=== PATIENT | female | born 1995 | race Caucasian/White ===

== ENCOUNTER → 2020-02-14 | Outpatient (CLI) | payer OTHER ==
--- NOTE | 2020-02-14 11:37 | US ---
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 GLAND SIZE: Right Lobe: 3.6 X 1.4 X 1.0 cm Overall Parenchyma: homogenous Left Lobe: 4.6 x 1.1 x 1.5 cm Overall Parenchyma: homogeneous Isthmus Thickness: 0.3 cm NODULES RIGHT: # of nodules measured on right: 0 LEFT: # of nodules measured on left: 1 1. 0.4 X 0.3 x 0.2 cm hypoechoic cystic nodule at the lower pole with well-defined margins; . This nodule is wider than tall and shows no intranodular vascularity. ISTHMUS: # of nodules measured in the isthmus: 0 Bilateral neck scanned, no evidence of lymphadenopathy. IMPRESSION: Nonspecific subcentimeter nodule left thyroid lobe.
== END | disposition home or self-care (01) ==
LOC: RADUSWWP 11:01
PROVIDERS: ATTEND Family Medicine
DX: E04.1 Nontoxic single thyroid nodule (principal)
CPT/HCPCS: 76536

== ENCOUNTER → 2020-04-25 | Outpatient (CLI) | payer MEDICARE, OTHER | END | disposition home or self-care (01) | LOC: LABWHC1 13:43 | PROVIDERS: ATTEND Pediatrics Pediatric Infectious Diseases | DX: Z11.59 Encounter for screening for other viral diseases (principal) | CPT/HCPCS: U0003; C9803 ==

== ENCOUNTER → 2020-04-28 | Outpatient (CLI) | payer OTHER | END | disposition home or self-care (01) | LOC: LABWHC1 15:24 | PROVIDERS: ATTEND Pediatrics Pediatric Infectious Diseases | DX: Z11.59 Encounter for screening for other viral diseases (principal) | CPT/HCPCS: U0003; C9803 ==

== ENCOUNTER 2020-05-06 09:18 | Outpatient (CLI) | payer OTHER ==
[2020-05-06 10:09] VITALS: BP 128/65; PULSE 77; RESP 15; TEMP 97.6
--- NOTE | 2020-05-07 08:03 | P.MSEPDOC ---
Presenting Problems - Arrival Data Date of Arrival on Unit: 05/06/20 Time of Arrival on Unit: 09:18 Mode of Transport: Ambulatory - Complaint OB-Reason for Admission/Chief Complaint: Pain Comment: Pt complains of left sided abdominal pain that she rates 6/10. States it is a constant aching/sharp pain. Medical History - Information : 2 Para: 1 Term: 1 : 0 Abortions: Spontaneous or Elective: 0 Number of Living Children: 1 - Gestational Age Gestational Age by MANGO (wks/days): 25 Weeks and 0 Days Review of Systems - Review of Systems Constitutional: No problems Breast: No problems ENT: No problems Cardiovascular: No problems Respiratory: No problems Gastrointestinal: No problems Genitourinary: No problems Musculoskeletal: No problems Neurological: No problems Skin: No problems Vital Signs - Temperature Temperature: 97.6 F Temperature Source: Temporal Artery Scan - Pulse Pulse Oximetery Pulse Rate: 77 Pulse Assessment Method: Pulse Oximetry - Respirations Respiratory Rate: 15 Oxygen Delivery Method: Room Air O2 Sat by Pulse Oximetry: 98 - Blood Pressure Right Arm Blood Pressure: 128/65 Blood Pressure Mean: 86 Blood Pressure Source: Automatic Cuff Medical Screen Scoring (Pre) - Cervical Exam Dilation: Exam Deferred Effacement: Exam Deferred Membranes: Intact - Uterine Contractions Frequency: N/A Duration: N/A Intensity: N/A - Maternal Vital Signs Maternal Temperature: N/A Maternal Blood Pressure: N/A Signs of Preeclampsia: N/A Maternal Respirations: N/A - Maternal Trauma Maternal Trauma: N/A - Assessment - Baby A Baseline FHR: 130 Heart Rate - NICHD Category: Category I (Normal) = 0 Position: N/A Station: N/A - Total Score - Baby A Total Score - Baby A: 0 - Total Score - Baby B Total Score - Baby B: 0 - Total Score - Baby C Total Score - Baby C: 0 - Level of Risk - Baby A Level of Risk - Baby A: Low (0-5) - Level of Risk - Baby B Level of Risk - Baby B: Low (0-5) - Level of Risk - Baby C Level of Risk - Baby C: Low (0-5) Physician Notification (Pre) - Physician Notified Physician Notified Date: 05/06/20 Physician Notified Time: 09:48 New Order Received: Yes Disposition - Disposition OB Disposition: Physician follow up in office, Discharge to home Discharge Date: 05/06/20 Discharge Time: 09:55 I agree with the RN Medical Screening Exam: Yes Risk & Benefit of care provided described in d/c instruction: Yes Diagnosis: FALSE LABOR BEFORE 37 COMPLETED WEEKS OF GEST, SECOND TRI
== END 2020-05-06 09:55 | disposition home or self-care (01) ==
LOC: FBPOP 09:18
PROVIDERS: ATTEND Obstetrics & Gynecology
DX: O47.02 False labor before 37 completed weeks of gestation, second trimester (principal); Z3A.25 25 weeks gestation of pregnancy
CPT/HCPCS: 99213

== ENCOUNTER 2020-05-09 05:39 | Outpatient (CLI) | payer MEDICARE, OTHER ==
[2020-05-09 06:19] LABS: Appearance,Urine Clear (Clear); Bacteria,Urine Rare /hpf; Bilirubin,Urine Negative (Negative); Blood,Urine Negative (Negative); Color,Urine Light Yellow; Glucose,Urine (UA) Negative (Negative); Ketones,Urine Negative (Negative); Leukocyte Esterase,Urine Moderate (Negative); Nitrite,Urine Negative (Negative); Protein,Urine Negative (Negative); RBC,Urine 1 /hpf (0-5); Specific Gravity,Urine 1.002 (1.001-1.035); Squamous Epithelial Cell,Urine 1 /hpf (0-4); Urobilinogen,Urine <2.0 mg/dL (<2.0); WBC,Urine 6 /hpf (0-5)
[2020-05-09] MEDS ORDERED: LACTATED RINGERS 1,000 ML IV SCH ×2 (06:30)
[2020-05-09] MEDS ORDERED: ACETAMINOPHEN IV (For NPO) 1,000 MG in EMPTY BAG 1 BAG IVPB STA (06:35)
[2020-05-09 07:44] LABS: Basophils % (A) 0 %; Eosinophils % (A) 0 %; HGB 10.7 gm/dL (11.4-16.0); Lymphocytes # (A) 0.7 k/uL (1.0-4.8); Lymphocytes % (A) 6 %; MCH 29.5 pg (25.0-35.0); MCHC 32.5 g/dL (31.0-37.0); MCV 90.7 fL (80.0-100.0); Mean Platelet Volume 8.9; Monocytes # (A) 0.9 k/uL (0-1.0); Monocytes % (A) 7 %; Neutrophils # (A) 10.6 k/uL (1.3-7.7); Neutrophils % (A) 86 %; Platelet Count 182 k/uL (150-450); RBC 3.64 m/uL (3.80-5.40); RDW 12.9 % (11.5-15.5); WBC 12.3 k/uL (3.8-10.6)
[2020-05-09 07:55] LABS: ALT 13 U/L (4-34); AST 22 U/L (14-36); African American GFR (CKD) >90 (>60 ml/min/1.73 sqM); Alkaline Phosphatase 114 U/L (38-126); Anion Gap 6 mmol/L; Blood Urea Nitrogen 3 mg/dL (7-17); Calcium 8.7 mg/dL (8.4-10.2); Carbon Dioxide 22 mmol/L (22-30); Chloride 102 mmol/L (98-107); Glucose 104 mg/dL (74-99); Non-African American GFR(CKD) >90 (>60 ml/min/1.73 sqM); Potassium 3.5 mmol/L (3.5-5.1); Sodium 130 mmol/L (137-145); Total Bilirubin 0.6 mg/dL (0.2-1.3); Total Protein 5.7 g/dL (6.3-8.2)
--- NOTE | 2020-05-09 09:51 | US ---
EXAMINATION TYPE: US OB >= 14 wk fetus DATE OF EXAM: 05/09/2020 COMPARISON: None CLINICAL HISTORY: abd pain, fever TECHNIQUE: Transabdominal (TA) GESTATIONAL AGE / DATING Physician Established: (25 weeks/3 days) EDC: 08/19/2020 Dates by Current Scan: (25 weeks/1 days) EDC: 08/21/2020 Beta HCG (if available): Not available at this time SURVEY IUP: Single PLACENTA: Posterior PREVIA: No Previa GARRET: 14.6 cm Normal CERVICAL LENGTH (transabdominal: norm > 3.0cm): 2.9 cm BIOMETRY PRESENTATION: Breech BPD: 6.0 cm 24 weeks / 4 days HC: 22.7 cm 24 weeks / 5 days AC: 21.0 cm 25 weeks / 4 days FL: 4.6 cm 25 weeks / 3 days ESTIMATED WEIGHT IN GRAMS: 794 grams ESTIMATED WEIGHT IN LBS/OZ: 1 lbs. 12 oz. WEIGHT PERCENTAGE BASED ON ESTABLISHED DATES: 34% HC/AC: 1.1 Normal FL/AC: 22 Normal HEART RATE: 153 bpm RHYTHM: Normal IMPRESSION: 1. Single live intrauterine , with ultrasound gestational age of 25 weeks 1 day. 2. Cervical length 2.9 cm.
[2020-05-09 14:44] VITALS: BP 111/58; PULSE 120; RESP 18
[2020-05-09 14:49] VITALS: TEMP 97.3
--- NOTE | 2020-06-06 09:14 | P.MSEPDOC ---
Presenting Problems - Arrival Data Date of Arrival on Unit: 05/09/20 Time of Arrival on Unit: 05:39 Mode of Transport: Wheelchair - Complaint OB-Reason for Admission/Chief Complaint: Other Comment: pt presented with recurrent fevers that has been about 103-104 degrees, Medical History - Information : 2 Para: 1 Term: 1 : 0 Abortions: Spontaneous or Elective: 0 Number of Living Children: 1 - Gestational Age Gestational Age by MANGO (wks/days): 25 Weeks and 3 Days Review of Systems - Review of Systems Constitutional: No problems Breast: No problems ENT: No problems Cardiovascular: No problems Respiratory: No problems Gastrointestinal: No problems Genitourinary: No problems Musculoskeletal: No problems Neurological: No problems Skin: No problems Vital Signs - Temperature Temperature: 97.3 F Temperature Source: Oral - Pulse Right Brachial Pulse Rate: 120 Pulse Assessment Method: Automatic Cuff - Respirations Respiratory Rate: 18 Oxygen Delivery Method: Room Air - Blood Pressure Right Arm Blood Pressure: 111/58 Blood Pressure Mean: 75 Blood Pressure Source: Automatic Cuff Medical Screen Scoring (Pre) - Cervical Exam Dilation: Exam Deferred Effacement: Exam Deferred Membranes: Intact - Uterine Contractions Frequency: N/A Duration: N/A Intensity: N/A - Maternal Vital Signs Maternal Temperature: N/A, > 100.4 F = 4 Maternal Blood Pressure: N/A Signs of Preeclampsia: N/A Maternal Respirations: N/A - Maternal Trauma Maternal Trauma: N/A - Assessment - Baby A Baseline FHR: 165 Heart Rate - NICHD Category: Category I (Normal) = 0 NST: Reactive Position: N/A Station: N/A - Total Score - Baby A Total Score - Baby A: 4 - Total Score - Baby B Total Score - Baby B: 4 - Total Score - Baby C Total Score - Baby C: 4 - Level of Risk - Baby A Level of Risk - Baby A: Low (0-5) - Level of Risk - Baby B Level of Risk - Baby B: Low (0-5) - Level of Risk - Baby C Level of Risk - Baby C: Low (0-5) Physician Notification (Pre) - Physician Notified Physician Notified Date: 05/09/20 Physician Notified Time: 06:28 New Order Received: Yes - Notification Comment Comment: labs and covid test ordered, ivf, and offirmiv ordered Medical Screen Scoring (Post) - Cervical Exam Dilation: Exam Deferred Effacement: Exam Deferred Membranes: Intact - Uterine Contractions Frequency: N/A Duration: N/A Intensity: N/A - Maternal Vital Signs Maternal Temperature: N/A Maternal Blood Pressure: N/A Signs of Preeclampsia: N/A Maternal Respirations: N/A - Pain Assessment Pain Scale Used: Numeric (1 - 10) Pain Intensity: 0 - Maternal Trauma Maternal Trauma: N/A - Assessment - Baby A Heart Rate: 120 Heart Rate - NICHD Category: Category I (Normal) = 0 NST: Reactive Position: N/A Station: N/A - Total Score Total Score - Baby A: 0 Total Score - Baby B: 0 Total Score - Baby C: 0 - Post Treatment Level of Risk Post Treatment Level of Risk - Baby A: Low (0-5) Post Treatment Level of Risk - Baby B: Low (0-5) Post Treatment Level of Risk - Baby C: Low (0-5) Physician Notification (Post) - Physician Notified Physician Notified Date: 05/09/20 Physician Notified Time: 10:20 Physician/Practitioner Notified:: Nazanin Spoke With: milady New Order Received: Yes - Notification Comment Comment: discharge pt home, follow up with Dr. Ch beginning of the week, no work tonight or over the weekend, take tylenol as needed Disposition - Disposition OB Disposition: Discharge to home, Written follow up instructions reviewed Discharge Date: 05/09/20 Discharge Time: 11:00 I agree with the RN Medical Screening Exam: Yes Risk & Benefit of care provided described in d/c instruction: Yes Diagnosis: FEVER, UNSPECIFIED
== END 2020-05-09 11:00 | disposition home or self-care (01) ==
LOC: FBPOP 05:39
PROVIDERS: ATTEND Obstetrics & Gynecology Obstetrics
DX: O99.89 Other specified diseases and conditions complicating pregnancy, childbirth and the puerperium (principal); R50.9 Fever, unspecified; Z3A.25 25 weeks gestation of pregnancy
CPT/HCPCS: 96361; 96365; 80053; 85025; 81001; 87635; 76805; G0463; J0131; 99214

== ENCOUNTER 2020-05-10 13:37 | Emergency (ER) | payer OTHER ==
[2020-05-10] MEDS ORDERED: ACETAMINOPHEN TAB 500 MG TAB PO STA (14:23)
[2020-05-10] MEDS ORDERED: SODIUM CHLORIDE 0.9% 1,000 ML IV STA (14:23)
[2020-05-10] MEDS ORDERED: SODIUM CHLORIDE 0.9% 500 ML 500 ML IV STA (14:23)
[2020-05-10 15:13] LABS: Basophils % (A) 0 %; Eosinophils % (A) 0 %; HCT 35.3 % (34.0-46.0); Lymphocytes # (A) 0.6 k/uL (1.0-4.8); Lymphocytes % (A) 5 %; MCH 30.6 pg (25.0-35.0); MCHC 34.2 g/dL (31.0-37.0); MCV 89.5 fL (80.0-100.0); Mean Platelet Volume 8.9; Monocytes # (A) 0.5 k/uL (0-1.0); Monocytes % (A) 4 %; Neutrophils # (A) 10.8 k/uL (1.3-7.7); Neutrophils % (A) 89 %; Platelet Count 207 k/uL (150-450); RBC 3.94 m/uL (3.80-5.40); RDW 12.8 % (11.5-15.5); WBC 12.1 k/uL (3.8-10.6)
[2020-05-10 15:18] LABS: Appearance,Urine Clear (Clear); Bacteria,Urine Occasional /hpf; Bilirubin,Urine Negative (Negative); Blood,Urine Negative (Negative); Color,Urine Yellow; Glucose,Urine (UA) Negative (Negative); Ketones,Urine 1+ (Negative); Leukocyte Esterase,Urine Moderate (Negative); Mucus,Urine Rare /hpf; Nitrite,Urine Negative (Negative); Protein,Urine Trace (Negative); RBC,Urine <1 /hpf (0-5); Specific Gravity,Urine 1.008 (1.001-1.035); Squamous Epithelial Cell,Urine 1 /hpf (0-4); WBC,Urine 5 /hpf (0-5)
[2020-05-10 15:23] LABS: ALT 14 U/L (4-34); AST 23 U/L (14-36); African American GFR (CKD) >90 (>60 ml/min/1.73 sqM); Albumin 3.5 g/dL (3.5-5.0); Alkaline Phosphatase 152 U/L (38-126); Anion Gap 9 mmol/L; Blood Urea Nitrogen 3 mg/dL (7-17); Calcium 9.2 mg/dL (8.4-10.2); Carbon Dioxide 21 mmol/L (22-30); Chloride 99 mmol/L (98-107); Glucose 99 mg/dL (74-99); Non-African American GFR(CKD) >90 (>60 ml/min/1.73 sqM); Potassium 3.4 mmol/L (3.5-5.1); Sodium 129 mmol/L (137-145); Total Bilirubin 0.6 mg/dL (0.2-1.3); Total Protein 6.4 g/dL (6.3-8.2)
--- NOTE | 2020-05-10 15:24 | ED ---
Fever HPI - General Chief Complaint: Fever Stated Complaint: fever Time Seen by Provider: 05/10/20 14:08 Source: patient Mode of arrival: wheelchair Limitations: no limitations - History of Present Illness Initial Comments: 24-year-old female patient presents to the emergency department today for evaluation of fever for the last 4 days. Patient states her fever has been as high as 104F. Patient states she is having some mild abdominal discomfort with this. She is currently 26 weeks , her WIND FARM DESIGNER believe this is round ligament pain. Patient states that she was ill with upper respiratory infection the week prior to developing the fevers. States most of her symptoms resolved. States she does still have a cough. Denies any sputum production. States she is having some mild pain to the left lateral chest. Denies any shortness of breath, rash, nausea, vomiting, or diarrhea. Denies any hematuria, dysuria, urinary frequency, urinary urgency. She did have evaluation and family birthplace a couple of days ago. She had labs and urine test performed which showed no evidence for infection. Patient states she has been taking Tylenol to control her fever but it isn't completely effective. She denies any abnormal vaginal bleeding or discharge. Patient denies any recent rash, back pain, numbness, tingling, dizziness, weakness, headache, visual changes, or any other complaints. - Related Data Home Medications Medication Instructions Recorded Confirmed Pnv,Calcium 72/Iron/Folic Acid 1 tab PO DAILY 10/04/15 05/09/20 [ Plus Tablet] Acetaminophen Tab [Tylenol] 650 mg PO Q6H 05/09/20 05/09/20 Allergies Allergy/AdvReac Type Severity Reaction Status Date / Time No Known Allergies Allergy Verified 05/10/20 13:55 Review of Systems ROS Statement: Those systems with pertinent positive or pertinent negative responses have been documented in the HPI. ROS Other: All systems not noted in ROS Statement are negative. Past Medical History Past Medical History: No Reported History Additional Past Medical History / Comment(s): Patient reports that she had one seizure as a infant, none since. Patient states that she had mono at 14 years old. History of Any Multi-Drug Resistant Organisms: None Reported Past Surgical History: No Surgical Hx Reported Additional Past Surgical History / Comment(s): [place] teeth at 17 years old. Past Anesthesia/Blood Transfusion Reactions: No Reported Reaction Past Psychological History: Anxiety Smoking Status: Never smoker Past Alcohol Use History: None Reported Past Drug Use History: None Reported - Past Family History Mother Family Medical History: Musculoskeletal Disorder Additional Family Medical History / Comment(s): Cololitis, abdominal hernia, brittle bone disease, ulcers per patient. Father Family Medical History: Myocardial Infarction ([place]) Additional Family Medical History / Comment(s): [place] times two. General Exam Limitations: no limitations General appearance: alert, in no apparent distress, other (This is a well developed, well nourished adult female patient in no acute distress. Vital signs upon presentation are temperature 103.2F, pulse 137, respirations 18, blood pressure 105/64, pulse ox 99% on room air.) Eye exam: Present: normal appearance, PERRL, EOMI. Absent: scleral icterus, conjunctival injection, periorbital swelling ENT exam: Present: normal exam, normal oropharynx, mucous membranes moist Respiratory exam: Present: normal lung sounds bilaterally. Absent: respiratory distress, wheezes, rales, rhonchi, stridor Cardiovascular Exam: Present: normal rhythm, tachycardia, normal heart sounds. Absent: systolic murmur, diastolic murmur, rubs, gallop, clicks GI/Abdominal exam: Present: soft, normal bowel sounds. Absent: distended, tenderness, guarding, rebound, rigid Back exam: Present: normal inspection. Absent: CVA tenderness (R), CVA tenderness (L) Neurological exam: Present: alert, oriented X3, CN II-XII intact Psychiatric exam: Present: normal affect, normal mood Skin exam: Present: warm, dry, intact, normal color. Absent: rash Course Vital Signs 05/10/20 05/10/20 05/10/20 13:55 14:05 15:05 Temperature 103.2 F H Pulse Rate 137 H Respiratory 18 20 20 Rate Blood Pressure 105/64 O2 Sat by Pulse 99 Oximetry 05/10/20 05/10/20 16:00 17:27 Temperature 98.8 F 97.9 F Pulse Rate 100 87 Respiratory 20 20 Rate Blood Pressure 102/59 111/58 O2 Sat by Pulse 97 99 Oximetry Medical Decision Making - Medical Decision Making 24-year-old female patient presented to the emergency department today for evaluation of fever x4 days. Physical examination is unremarkable. Patient reports being tested for COVID-19 three times and being negative. She is 26 wee ks . She is feeling movement. Reports some lower abdominal discomfort especially on the left, her OBGYN told her it was round ligament pain. Labs show mildly elevated white blood cell count. negative lactic acid. Urinalysis is normal. Recent urine culture showed normal vaginal palmira. Chest xray showed no acute abormalities. We did discuss another respiratory virus as the cause of her symptoms. She will be discharged home with instructions to take tylenol for fever control. Increase fluids. Follow up with her PCP and OBGYN for recheck as soon as possible. She is instructed to return for any new, worsening, or concerning symptoms. - Lab Data Result diagrams: 05/10/20 14:41 05/10/20 14:41 Lab Results 05/10/20 05/10/20 05/10/20 Range/Units 14:41 14:41 14:41 WBC 12.1 H (3.8-10.6) k/uL RBC 3.94 (3.80-5.40) m/uL Hgb 12.0 (11.4-16.0) gm/dL Hct 35.3 (34.0-46.0) % MCV 89.5 (80.0-100.0) fL MCH 30.6 (25.0-35.0) pg MCHC 34.2 (31.0-37.0) g/dL RDW 12.8 (11.5-15.5) % Plt Count 207 (150-450) k/uL Neutrophils % 89 % Lymphocytes % 5 % Monocytes % 4 % Eosinophils % 0 % Basophils % 0 % Neutrophils # 10.8 H (1.3-7.7) k/uL Lymphocytes # 0.6 L (1.0-4.8) k/uL Monocytes # 0.5 (0-1.0) k/uL Eosinophils # 0.0 (0-0.7) k/uL Basophils # 0.0 (0-0.2) k/uL Sodium 129 L (137-145) mmol/L Potassium 3.4 L (3.5-5.1) mmol/L Chloride 99 (98-107) mmol/L Carbon Dioxide 21 L (22-30) mmol/L Anion Gap 9 mmol/L BUN 3 L (7-17) mg/dL Creatinine 0.41 L (0.52-1.04) mg/dL Est GFR (CKD-EPI)AfAm >90 (>60 ml/min/1.73 sqM) Est GFR (CKD-EPI)NonAf >90 (>60 ml/min/1.73 sqM) Glucose 99 (74-99) mg/dL Plasma Lactic Acid Matthias (0.7-2.0) mmol/L Calcium 9.2 (8.4-10.2) mg/dL Total Bilirubin 0.6 (0.2-1.3) mg/dL AST 23 (14-36) U/L ALT 14 (4-34) U/L Alkaline Phosphatase 152 H (38-126) U/L Total Protein 6.4 (6.3-8.2) g/dL Albumin 3.5 (3.5-5.0) g/dL Urine Color Yellow Urine Appearance Clear (Clear) Urine pH 7.0 (5.0-8.0) Ur Specific [place] 1.008 (1.001-1.035) Urine Protein Trace H (Negative) Urine Glucose (UA) Negative (Negative) Urine Ketones 1+ H (Negative) Urine Blood Negative (Negative) Urine Nitrite Negative (Negative) Urine Bilirubin Negative (Negative) Urine Urobilinogen 2.0 (<2.0) mg/dL Ur Leukocyte Esterase Moderate H (Negative) Urine RBC <1 (0-5) /hpf Urine WBC 5 (0-5) /hpf Ur Squamous Epith Cells 1 (0-4) /hpf Urine Bacteria Occasional H (None) /hpf Urine Mucus Rare H (None) /hpf 05/10/20 Range/Units 14:41 WBC (3.8-10.6) k/uL RBC (3.80-5.40) m/uL Hgb (11.4-16.0) gm/dL Hct (34.0-46.0) % MCV (80.0-100.0) fL MCH (25.0-35.0) pg MCHC (31.0-37.0) g/dL RDW (11.5-15.5) % Plt Count (150-450) k/uL Neutrophils % % Lymphocytes % % Monocytes % % Eosinophils % % Basophils % % Neutrophils # (1.3-7.7) k/uL Lymphocytes # (1.0-4.8) k/uL Monocytes # (0-1.0) k/uL Eosinophils # (0-0.7) k/uL Basophils # (0-0.2) k/uL Sodium (137-145) mmol/L Potassium (3.5-5.1) mmol/L Chloride (98-107) mmol/L Carbon Dioxide (22-30) mmol/L Anion Gap mmol/L BUN (7-17) mg/dL Creatinine (0.52-1.04) mg/dL Est GFR (CKD-EPI)AfAm (>60 ml/min/1.73 sqM) Est GFR (CKD-EPI)NonAf (>60 ml/min/1.73 sqM) Glucose (74-99) mg/dL Plasma Lactic Acid Matthias 1.1 (0.7-2.0) mmol/L Calcium (8.4-10.2) mg/dL Total Bilirubin (0.2-1.3) mg/dL AST (14-36) U/L ALT (4-34) U/L Alkaline Phosphatase (38-126) U/L Total Protein (6.3-8.2) g/dL Albumin (3.5-5.0) g/dL Urine Color Urine Appearance (Clear) Urine pH (5.0-8.0) Ur Specific [place] (1.001-1.035) Urine Protein (Negative) Urine Glucose (UA) (Negative) Urine Ketones (Negative) Urine Blood (Negative) Urine Nitrite (Negative) Urine Bilirubin (Negative) Urine Urobilinogen (<2.0) mg/dL Ur Leukocyte Esterase (Negative) Urine RBC (0-5) /hpf Urine WBC (0-5) /hpf Ur Squamous Epith Cells (0-4) /hpf Urine Bacteria (None) /hpf Urine Mucus (None) /hpf - Radiology Data Radiology results: report reviewed, image reviewed 2 views show normal chest. Impression is by Ostermann. Disposition Clinical Impression: Viral syndrome, Fever, Acute stress reaction Disposition: HOME SELF-CARE Condition: Good Instructions (If sedation given, give patient instructions): Fever in Adults (ED), Viral Syndrome (ED) Additional Instructions: Take 1000mg of Tylenol every 6 hours. Increase fluids. Rest. Follow-up with your primary care physician your [employer]ARM DESIGNER for recheck as soon as possible. Return to the emergency department immediately for any new, worsening, or concerning symptoms. Is patient prescribed a controlled substance at d/c from ED?: No Referrals: Kaylee Whitten III, MD [Primary Care Provider] - 1-2 days Time of Disposition: 16:59
[2020-05-10 15:37] VITALS: RESP 20
--- NOTE | 2020-05-10 15:59 | XR ---
EXAMINATION TYPE: XR chest 2V DATE OF EXAM: 05/10/2020 COMPARISON: NONE HISTORY: Fever and cough TECHNIQUE: 2 views FINDINGS: Heart and mediastinum are normal. Lungs are clear. Diaphragm is normal. Bony thorax appears intact. There is slight thoracic dextroscoliosis. IMPRESSION: Normal chest.
[2020-05-10 17:28] VITALS: BP 111/58; PULSE 87; TEMP 97.9
== END 2020-05-10 17:35 | disposition home or self-care (01) ==
LOC: EC 13:37
DX: O98.512 Other viral diseases complicating pregnancy, second trimester (principal); B34.9 Viral infection, unspecified; O99.342 Other mental disorders complicating pregnancy, second trimester; F43.0 Acute stress reaction; O99.89 Other specified diseases and conditions complicating pregnancy, childbirth and the puerperium; D72.829 Elevated white blood cell count, unspecified; R10.32 Left lower quadrant pain; Z3A.36 36 weeks gestation of pregnancy
CPT/HCPCS: 36415; 71046; 80053; 81001; 83605; 85025; 87040; 96360; 99284

== ENCOUNTER 2020-08-18 17:10 | Inpatient (IN) | payer MEDICAID, OTHER ==
[2020-08-18 17:49] LABS: Appearance,Urine Clear (Clear); Bilirubin,Urine Negative (Negative); Blood,Urine Negative (Negative); Color,Urine Colorless; Glucose,Urine (UA) Negative (Negative); Ketones,Urine Negative (Negative); Leukocyte Esterase,Urine Negative (Negative); Nitrite,Urine Negative (Negative); PH, Urine 6.5 (5.0-8.0); Protein,Urine Negative (Negative); Specific Gravity,Urine 1.003 (1.001-1.035); Urobilinogen,Urine <2.0 mg/dL (<2.0)
[2020-08-18 17:58] LABS: Creatinine,Urine Random 19.4 mg/dL; Protein/Creatinine Ratio,Urine 1.134
[2020-08-18 18:24] LABS: Basophils # (A) 0.1 k/uL (0-0.2); Basophils % (A) 1 %; Eosinophils # (A) 0.1 k/uL (0-0.7); Eosinophils % (A) 1 %; HCT 34.3 % (34.0-46.0); HGB 11.1 gm/dL (11.4-16.0); Lymphocytes # (A) 1.7 k/uL (1.0-4.8); Lymphocytes % (A) 24 %; MCH 27.6 pg (25.0-35.0); MCHC 32.2 g/dL (31.0-37.0); MCV 85.6 fL (80.0-100.0); Mean Platelet Volume 10.2; Monocytes # (A) 0.4 k/uL (0-1.0); Monocytes % (A) 5 %; Neutrophils % (A) 68 %; Platelet Count 224 k/uL (150-450); RBC 4.01 m/uL (3.80-5.40); RDW 14.6 % (11.5-15.5); WBC 7.3 k/uL (3.8-10.6)
[2020-08-18 18:31] LABS: ALT 15 U/L (4-34); AST 25 U/L (14-36); African American GFR (CKD) >90 (>60 ml/min/1.73 sqM); Albumin 3.2 g/dL (3.5-5.0); Alkaline Phosphatase 291 U/L (38-126); Anion Gap 5 mmol/L; Blood Urea Nitrogen 15 mg/dL (7-17); Calcium 9.4 mg/dL (8.4-10.2); Carbon Dioxide 22 mmol/L (22-30); Chloride 107 mmol/L (98-107); Glucose 92 mg/dL (74-99); LDH 474 U/L (313-618); Non-African American GFR(CKD) >90 (>60 ml/min/1.73 sqM); Potassium 4.2 mmol/L (3.5-5.1); Sodium 134 mmol/L (137-145); Total Bilirubin 0.2 mg/dL (0.2-1.3); Total Protein 6.1 g/dL (6.3-8.2); Uric Acid 5.9 mg/dL (3.7-7.4)
[2020-08-18] MEDS ORDERED: CARBOPROST TROMETHAMINE 250 MCG/ML 1 ML AMP IM PRN (19:35)
[2020-08-18] MEDS ORDERED: TERBUTALINE 1 MG/ML VIAL SQ PRN (19:35)
[2020-08-18] MEDS ORDERED: LIDOCAINE 0.5% (PF) 5 MG/ML (50 ML SDV) SQ PRN (19:35)
[2020-08-18] MEDS ORDERED: METHYLERGONOVINE 0.2 MG/ML 1 ML AMP IM PRN (19:35)
[2020-08-18] MEDS ORDERED: OXYTOCIN 10 UNIT/ML 1 ML VIAL IM PRN (19:35)
[2020-08-18] MEDS ORDERED: BUTORPHANOL 1 MG/ML 1 ML VIAL IV PRN (19:39)
--- NOTE | 2020-08-18 19:49 | P.HPOB ---
History of Present Illness H&P Date: 08/18/20 Chief Complaint: 39-6/7 weeks, preeclampsia The patient is a 24-year-old 2 para 1001 admitted at 39-6/7 weeks as established by an 11 week ultrasound. She is admitted after having been seen in the office today where she had a moderately elevated blood pressures with a complaint of scotomata yesterday and trace to 1+ edema in the bilateral lower extremities. Urine dip was negative for protein. She was brought to labor and delivery where she had laboratory studies done for preeclampsia. She was found to have moderately labile blood pressures with a mildly elevated uric acid and LDH as well as an elevated protein to creatinine ratio. The remainder of the wo rkup for severe preeclampsia was negative. As her cervix is favorable, the recommendation was made for induction of labor to avoid potential complications of worsening preeclampsia. The patient has been and remains reticent to proceed with induction immediately which was my initial recommendation. She is willing to remain in the hospital for ongoing monitoring and begin induction of labor early tomorrow morning. As result, she has been admitted for close observation overnight with serial blood pressures in the intention of induction first thing in the morning with Pitocin beginning at 0600. status is entirely reassuring with a category 1 heart rate tracing. Her has otherwise been uncomplicated though she has had relatively spotty attendance with care. She additionally had a recent COVID exposure and has been tested and found negative. Group B strep status is negative. Obstetrical history: 2 para 1001 with 1 previous term delivery without complications. Current statistics are listed in history of present illness. EDC of 08/19/2020 was established by an 11 week ultrasound. Laboratory workup demonstrates a blood type of O+ with a negative antibody screen. Rubella status is immune. The remainder of the laboratory workup was within normal limits though she did have an abnormal Pap smear which will be followed up with repeat Pap smear . One hour Glucola was not done secondary to limited care during the mid and late second trimester as well as beginning a third trimester. Group B strep status is negative. Gynecologic history: Unremarkable with no history of any infections to include STDs. Review of Systems Review of systems is confined to history of present illness. Past Medical History Past Medical History: No Reported History Additional Past Medical History / Comment(s): Patient reports that she had one seizure as a infant, none since. Patient states that she had mono at 14 years old. History of Any Multi-Drug Resistant Organisms: None Reported Past Surgical History: No Surgical Hx Reported Additional Past Surgical History / Comment(s): [place] teeth at 17 years old. Past Anesthesia/Blood Transfusion Reactions: No Reported Reaction Smoking Status: Never smoker - Past Family History Mother Family Medical History: Musculoskeletal Disorder Additional Family Medical History / Comment(s): Cololitis, abdominal hernia, brittle bone disease, ulcers per patient. Father Family Medical History: Myocardial Infarction ([place]) Additional Family Medical History / Comment(s): [place] times two. Medications and Allergies Home Medications Medication Instructions Recorded Confirmed Type Pnv,Calcium 72/Iron/Folic Acid 1 tab PO DAILY 10/04/15 08/18/20 History [ Plus Tablet] Allergies Allergy/AdvReac Type Severity Reaction Status Date / Time No Known Allergies Allergy Verified 08/13/20 11:52 Exam Intake and Output 08/18/20 08/18/20 08/18/20 06:59 14:59 22:59 Other: Weight 86.183 kg In general, this is a well-developed, well-nourished white female who is somewhat anxious. Her heart has a regular rhythm and rate without murmur. Her lungs are clear to auscultation bilaterally in all rowe. Her abdomen is gravid, nondistended, has normal active bowel sounds, soft, nontender, and without any palpable masses aside from the uterine fundus. Her extremities are without any cyanosis or clubbing though there is trace to 1+ bilateral lower extremity edema below the knee. Digital cervical examination in the office today demonstrated her cervix to be 2 cm dilated, approximately 80% effaced, with the vertex in presentation at -2 station. Results Result Diagrams: 08/18/20 17:43 08/18/20 17:43 Abnormal Lab Results - Last 24 Hours (Table) 08/18/20 08/18/20 08/18/20 Range/Units 17:32 17:43 17:43 Hgb 11.1 L (11.4-16.0) gm/dL Sodium 134 L (137-145) mmol/L Alkaline Phosphatase 291 H (38-126) U/L Total Protein 6.1 L (6.3-8.2) g/dL Albumin 3.2 L (3.5-5.0) g/dL U Random Total Protein 21 H (<12) mg/dL Assessment and Plan (1) Term Current Visit: Yes Status: Acute Code(s): Z34.90 - ENCNTR FOR SUPRVSN OF NORMAL , UNSP, UNSP TRIMESTER SNOMED Code(s): 58231194 (2) Pre-eclampsia Current Visit: Yes Status: Acute Code(s): O14.90 - UNSPECIFIED PRE- ECLAMPSIA, UNSPECIFIED TRIMESTER SNOMED Code(s): 295157432 Plan: The patient has agreed to be admitted for observation overnight with close monitoring of blood pressures. The intention is to begin Pitocin induction first thing in the morning with Pitocin to begin at 0600 hrs to be followed by artificial rupture of membranes tomorrow morning. She will have close maternal and surveillance and expectant management will otherwise be practiced. I have explained to her that should her blood pressures become more labile and require treatment, induction will progress immediately. I have discussed at length the potential risks of not undergoing induction and she has expressed an understanding. She is a good candidate for either IV or epidural analgesia, whichever she may choose.
[2020-08-18] MEDS: LACTATED RINGERS 1,000 ML IV SCH (22:59)
[2020-08-19] MEDS: LACTATED RINGERS 1,000 ML IV SCH ×2 (05:14→06:40)
[2020-08-19] MEDS: OXYTOCIN 30 UNITS/500 ML NS 30 UNIT in SALINE 1 500ML.BAG IV SCH (06:40)
--- NOTE | 2020-08-19 08:50 | P.PN ---
Subjective Progress Note Date: 08/19/20 Principal diagnosis: 40-0/7 weeks, preeclampsia, induction The patient rested well last evening and today has no significant symptoms. She is feeling some mild cramping Objective - Vital Signs Vital signs: Vital Signs Temp 97.9 F 08/18/20 19:40 Pulse 75 08/18/20 19:40 Resp 16 08/18/20 19:40 BP 143/91 08/18/20 19:40 Pulse Ox 100 08/18/20 19:00 Intake & Output 08/18/20 08/19/20 08/19/20 18:59 06:59 18:59 Weight 86.183 kg 86.183 kg Other: # Voids 1 - Exam Abdomen is gravid, nontender, and soft. Her extremities have no change in edema with trace to 1+ edema to mid [place] and are nontender to palpation bilaterally. Digital cervical examination demonstrates the cervix to be 2+ centimeters dilated, 60% effaced, with the vertex in presentation at -2 station. Artificial rupture of membranes is carried out demonstrating clear fluid. - Labs CBC & Chem 7: 08/18/20 17:43 08/18/20 17:43 Labs: Abnormal Lab Results - Last 24 Hours (Table) 08/18/20 08/18/20 08/18/20 Range/Units 17:32 17:43 17:43 Hgb 11.1 L (11.4-16.0) gm/dL Sodium 134 L (137-145) mmol/L Alkaline Phosphatase 291 H (38-126) U/L Total Protein 6.1 L (6.3-8.2) g/dL Albumin 3.2 L (3.5-5.0) g/dL U Random Total Protein 21 H (<12) mg/dL Assessment and Plan (1) Term Current Visit: Yes Status: Acute Code(s): Z34.90 - ENCNTR FOR SUPRVSN OF NORMAL , UNSP, UNSP TRIMESTER SNOMED Code(s): 00996437 (2) Pre-eclampsia Current Visit: Yes Status: Acute Code(s): O14.90 - UNSPECIFIED PRE- ECLAMPSIA, UNSPECIFIED TRIMESTER SNOMED Code(s): 914922244 Plan: We will continue with the induction as planned. We will continue with close maternal and surveillance and expectant management will be practiced. Orders have been placed for either IV or epidural analgesia, whichever she may choose.
[2020-08-19] MEDS ORDERED: SODIUM CHLORIDE 0.9% 100 ML BAG ONE (11:01)
[2020-08-19] MEDS ORDERED: fentaNYL (PF) 50 MCG/ML 5 ML AMP ONE (11:01)
[2020-08-19] MEDS ORDERED: ROPIVACAINE 5MG/ML 20ML VIAL ONE (11:01)
[2020-08-19] MEDS ORDERED: ROPIVACAINE 100 MG, fentaNYL (PF) 200 MCG in SODIUM CHLORIDE 0.9% 76 ML EPIDURAL ONE (11:21)
[2020-08-19] MEDS ORDERED: diphenhydrAMINE 50 MG CAP PO PRN (13:09)
[2020-08-19] MEDS ORDERED: diphenhydrAMINE 50 MG/ML 1 ML VIAL IVP PRN ×2 (13:09)
[2020-08-19] MEDS ORDERED: HYDROcodone/APAP 5-325MG 1 EACH TAB PO PRN (13:09)
[2020-08-19] MEDS ORDERED: HYDROCORTISONE 2.5% RECTAL CREAM 30 GM TUBE RECTAL PRN (13:09)
[2020-08-19] MEDS ORDERED: diphenhydrAMINE 25 MG CAP PO PRN (13:09)
[2020-08-19] MEDS ORDERED: BENZOCAINE/MENTHOL SPRAY 1 GM/SPRAY AEROSOL TOPICAL PRN (13:09)
[2020-08-19] MEDS ORDERED: ZOLPIDEM 5 MG TAB PO PRN (13:09)
[2020-08-19] MEDS ORDERED: HYDROcodone/APAP 7.5-325MG 1 EACH TAB PO PRN (13:09)
[2020-08-19] MEDS ORDERED: SIMETHICONE 80 MG CHEWABLE PO PRN (13:09)
[2020-08-19] MEDS ORDERED: LANOLIN CREAM 5 GM TUBE TOPICAL PRN (13:09)
--- NOTE | 2020-08-19 13:14 | P.PROBDLV ---
Vaginal Delivery Note - . Vaginal Delivery Note: This is a 24-year-old 2 para 1001 admitted at 39-6/7 weeks at which time the diagnosis of preeclampsia was made without severe features. The patient requested to not begin induction until this morning which was allowed though the patient was admitted and monitored closely for maternal and well-being. Her was otherwise uncomplicated though care was somewhat episodic through the second and third trimester. Group B strep status is ne gative. On labor and delivery this morning, she had Pitocin augmentation started followed by artificial rupture of membranes for clear fluid. She made progress to the active phase of labor which time an epidural catheter was placed for analgesia. She regressed quickly through the active phase of labor to complete and then pushed over the course of 1 contraction to a normal spontaneous vaginal delivery of a viable 7 lbs. 1 oz. baby boy with Apgars of 9 at 1 minute and 9 at 5 minutes delivered in the right occiput anterior position. The placenta was delivered spontaneously, intact, and grossly normal with a grossly normal three-vessel cord. There were no lacerations of perineum, vagina, or cervix. There were no complications. Estimated blood loss for the case is approximately 200 mL. All sponge, instrument, and needle counts were correct. Both mother and are resting comfortably in recovery. Vital signs remained stable and there is no evidence of any increasing blood pressures at this time.
[2020-08-19] MEDS ORDERED: OXYTOCIN 20 UNITS/1000 ML NS 1,000 ML IV SCH (13:15)
[2020-08-19] MEDS: ACETAMINOPHEN TAB 325 MG TAB PO PRN ×2 (17:00→23:22)
[2020-08-19] MEDS: IBUPROFEN 600 MG TAB PO PRN (18:50)
[2020-08-19] MEDS ORDERED: SENNOSIDES-DOCUSATE SODIUM 1 EACH TAB PO SCH (20:00)
[2020-08-20] MEDS: IBUPROFEN 600 MG TAB PO PRN ×3 (01:09→14:44)
[2020-08-20 02:15] VITALS: RESP 16
[2020-08-20 07:36] LABS: Basophils % (A) 0 %; Eosinophils # (A) 0.1 k/uL (0-0.7); Eosinophils % (A) 1 %; HCT 31.4 % (34.0-46.0); HGB 10.2 gm/dL (11.4-16.0); Hypochromasia Slight; Lymphocytes # (A) 1.6 k/uL (1.0-4.8); Lymphocytes % (A) 16 %; MCH 28.4 pg (25.0-35.0); MCHC 32.6 g/dL (31.0-37.0); MCV 87.1 fL (80.0-100.0); Mean Platelet Volume 10.3; Monocytes # (A) 0.5 k/uL (0-1.0); Monocytes % (A) 5 %; Neutrophils # (A) 7.7 k/uL (1.3-7.7); Neutrophils % (A) 77 %; Platelet Count 174 k/uL (150-450); RBC 3.61 m/uL (3.80-5.40); RDW 14.5 % (11.5-15.5); WBC 10.1 k/uL (3.8-10.6)
--- NOTE | 2020-08-20 08:43 | P.DS ---
Providers Date of admission: 08/18/20 19:35 Expected date of discharge: 08/20/20 Attending physician: Evaristo Ch Primary care physician: Stated None - Discharge Diagnosis(es) (1) Term Current Visit: Yes Status: Acute (2) Pre-eclampsia Current Visit: Yes Status: Acute (3) Normal spontaneous vaginal delivery Current Visit: Yes Status: Acute Hospital Course: The patient is a 24-year-old 2 para 1001 admitted initially at 39-6/7 weeks by good dating parameters. She was admitted for evaluation for the diagnosis of preeclampsia which was made. A long discussion was undertaken with the patient regarding induction and my desire to induce her immediately. She requested to wait overnight and be induced in the morning but did agree to be admitted to the hospital and monitored closely overnight. This was done and the patient remained stable. She had Pitocin started and then underwent artificial rupture of membranes for clear fluid. She didn't progress through the latent phase and had an epidural catheter placed for analgesia. She then progressed very quickly to complete and pushed over the course of 1 contraction to a normal spontaneous vaginal delivery of a viable 7 lbs. 1 oz. baby boy with Apgars of 9 at 1 minute and 9 at 5 minutes. Her course has been entirely uncomplicated with vital signs remaining stable and her temperature was afebrile throughout. Her blood pressures have remained completely within the normal range since delivery. She requested discharge on postoperative day #1 was deemed stable for discharge. She was therefore was discharged home to follow-up in the office in 6 weeks' time routinely. Discharge instructions included calling for any significantly increased bleeding or foul-smelling lochia, significantly increased fever abdominal pain, perineal complaints, breast complaints, or anything else that concerned her. She is additionally instructed to have nothing in vagina for at least 6 weeks time to include intercourse. She understood her instructions and agrees to follow up as noted above. Discharge medications included continued vitamins as she has opted to breast- feed. She otherwise was to use [id number] analgesic pain medications and all was additionally provided with a prescription for Harlan 5/325 mg, 1-2 by mouth every 6 hours when necessary pain, #12 dispensed with no refills. Maternal blood type is O+ and rubella status is immune. Procedures: #1. Pitocin induction #2. Artificial rupture of membranes #3. Epidural analgesia 4. Normal spontaneous vaginal delivery Patient Condition at Discharge: Stable Plan - Discharge Summary New Discharge Prescriptions: No Action Pnv,Calcium 72/Iron/Folic Acid [ Plus Tablet] 1 tab PO DAILY Discharge Medication List Pnv,Calcium 72/Iron/Folic Acid [ Plus Tablet] 1 tab PO DAILY 10/04/15 [History] Follow up Appointment(s)/Referral(s): Evaristo Ch MD [STAFF PHYSICIAN] - 6 Weeks Discharge Disposition: HOME SELF-CARE
[2020-08-20] MEDS: LACTATED RINGERS 1,000 ML IV SCH (11:00)
[2020-08-20] MEDS: OXYTOCIN 30 UNITS/500 ML NS 30 UNIT in SALINE 1 500ML.BAG IV SCH (11:01)
[2020-08-20 11:05] VITALS: BP 136/71; PULSE 91; TEMP 97.6
== END 2020-08-20 15:30 | disposition home or self-care (01) | DRG 807 ==
LOC: FBPOP 17:10 → 4FBP 19:35
PROVIDERS: ADMIT Obstetrics & Gynecology; ATTEND Obstetrics & Gynecology
PROC: 3E033VJ Introduction of Other Hormone into Peripheral Vein, Percutaneous Approach (ICD-10-PCS; 2020-08-18)
PROC: 10907ZC Drainage of Amniotic Fluid, Therapeutic from Products of Conception, Via Natural or Artificial Opening (ICD-10-PCS; 2020-08-18)
PROC: 00HU33Z Insertion of Infusion Device into Spinal Canal, Percutaneous Approach (ICD-10-PCS; principal; 2020-08-19)
PROC: 10E0XZZ Delivery of Products of Conception, External Approach (ICD-10-PCS; principal; 2020-08-19)
PROC: 3E0R3BZ Introduction of Anesthetic Agent into Spinal Canal, Percutaneous Approach (ICD-10-PCS; principal; 2020-08-19)
DX: O14.04 Mild to moderate pre-eclampsia, complicating childbirth (principal); Z37.0 Single live birth; Z3A.39 39 weeks gestation of pregnancy; Z79.899 Other long term (current) drug therapy; Z86.69 Personal history of other diseases of the nervous system and sense organs; Z82.49 Family history of ischemic heart disease and other diseases of the circulatory system; Z83.79 Family history of other diseases of the digestive system; Z82.79 Family history of other congenital malformations, deformations and chromosomal abnormalities
CPT/HCPCS: 59025; 80053; 81003; 82570; 83615; 84156; 84550; 85025; 86850; 86900; 86901; 99215

== ENCOUNTER 2020-11-11 20:49 | Emergency (ER) | payer MEDICAID, OTHER ==
[2020-11-11 20:54] VITALS: BP 144/80; PULSE 93; RESP 18; TEMP 98.5
--- NOTE | 2020-11-11 21:20 | ED ---
ENT HPI - General Chief complaint: ENT Stated complaint: Something stuck in thoat Time Seen by Provider: 11/11/20 21:09 Source: patient, RN notes reviewed Mode of arrival: ambulatory Limitations: no limitations - History of Present Illness Initial comments: 24-year-old female presented from chief complaint of possible foreign body in her throat. Patient states that she was drinking out of drive-through restaurant glass. Patient states that Thomas plastic broke off she states that she took the lid off and she started drinking without lid states that she felt that small piece of plastic go in her throat region patient states she any receptive drinking did not try to drink anything since then she's no difficulty breathing. Patient denies any vomiting. - Related Data Home Medications Medication Instructions Recorded Confirmed Pnv,Calcium 72/Iron/Folic Acid 1 tab PO DAILY 10/04/15 08/18/20 [ Plus Tablet] Allergies Allergy/AdvReac Type Severity Reaction Status Date / Time No Known Allergies Allergy Verified 11/11/20 20:54 Review of Systems ROS Statement: Those systems with pertinent positive or pertinent negative responses have been documented in the HPI. ROS Other: All systems not noted in ROS Statement are negative. Past Medical History Past Medical History: No Reported History Additional Past Medical History / Comment(s): Patient reports that she had one seizure as a infant, none since. Patient states that she had mono at 14 years old. History of Any Multi-Drug Resistant Organisms: None Reported Past Surgical History: No Surgical Hx Reported Additional Past Surgical History / Comment(s): [place] teeth at 17 years old. Past Anesthesia/Blood Transfusion Reactions: No Reported Reaction Past Psychological History: Anxiety Smoking Status: Never smoker Past Alcohol Use History: None Reported Past Drug Use History: None Reported - Past Family History Mother Family Medical History: Musculoskeletal Disorder Additional Family Medical History / Comment(s): Cololitis, abdominal hernia, brittle bone disease, ulcers per patient. Father History Unknown: Yes Family Medical History: Myocardial Infarction (SD) Additional Family Medical History / Comment(s): SD times two. General Exam Limitations: no limitations General appearance: alert, in no apparent distress Head exam: Present: atraumatic, normocephalic, normal inspection Eye exam: Present: normal appearance, PERRL, EOMI. Absent: scleral icterus, conjunctival injection, periorbital swelling ENT exam: Present: normal exam, normal oropharynx, mucous membranes moist, TM's normal bilaterally Neck exam: Present: normal inspection, full ROM. Absent: tenderness, meningismus, lymphadenopathy Respiratory exam: Present: normal lung sounds bilaterally. Absent: respiratory distress, wheezes, rales, rhonchi, stridor Cardiovascular Exam: Present: regular rate, normal rhythm, normal heart sounds. Absent: systolic murmur, diastolic murmur, rubs, gallop, clicks Course Vital Signs 11/11/20 20:51 Temperature 98.5 F Pulse Rate 93 Respiratory 18 Rate Blood Pressure 144/80 O2 Sat by Pulse 99 Oximetry Medical Decision Making - Medical Decision Making Patient's is in no signs of distress she was given a glass water she was able to fully drink a glass of water with no difficulty she states it seemed to improve her symptoms and symptoms have resolved. Patient be discharged in stable condition. Disposition Clinical Impression: Esophageal abrasion Disposition: HOME SELF-CARE Condition: Stable Instructions (If sedation given, give patient instructions): Esophageal Foreign Body (ED) Additional Instructions: Please return to the Emergency Department if symptoms worsen or any other concerns. Is patient prescribed a controlled substance at d/c from ED?: No Referrals: Kaylee Whitten III, MD [Primary Care Provider] - 1-2 days Time of Disposition: 21:20
== END 2020-11-11 21:30 | disposition home or self-care (01) ==
LOC: EC 20:49
DX: S27.818A Other injury of esophagus (thoracic part), initial encounter (principal); X58.XXXA Exposure to other specified factors, initial encounter
CPT/HCPCS: 99283